=== PATIENT | male | born 1985 | race Caucasian/White ===

== ENCOUNTER → 2020-02-22 | Outpatient (CLI) | payer OTHER ==
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
== END | disposition home or self-care (01) ==
LOC: RADXRMAIN 12:13
PROVIDERS: ATTEND Internal Medicine
DX: S99.911A Unspecified injury of right ankle, initial encounter (principal); S99.922A Unspecified injury of left foot, initial encounter